=== PATIENT | female | born 1965 ===

== ENCOUNTER 2017-05-14 13:05 | Emergency (ER) | payer SELFPAY ==
[2017-05-14] MEDS ORDERED: Sodium Chloride 0.9% 1,000 ML IV ONE ×2 (13:53→14:58)
--- NOTE | 2017-05-14 13:53 | C.PDOC ---
History Of Present Illness 51-YEAR-OLD FEMALE, PRESENTS TO THE EMERGENCY DEPARTMENT WITH COMPLAINTS OF NVD , AND ABD PAIN EXAM MILD DIST B/L LQ TEND SOFT NO R/G Time Seen by Provider: 05/14/17 13:42 Chief Complaint (Nursing): Abdominal Pain History Per: Patient History/Exam Limitations: no limitations Past Medical History Reviewed: Historical Data, Nursing Documentation, Vital Signs Vital Signs: Last Vital Signs Temp 99.0 F 05/14/17 16:42 Pulse 91 H 05/14/17 16:42 Resp 16 05/14/17 16:42 BP 102/70 05/14/17 16:42 Pulse Ox 100 05/16/17 07:26 - Medical History PMH: Gastrointestinal Ulcer Family History: States: No Known Family Hx - Social History Hx Alcohol Use: No Hx Substance Use: No - Immunization History Hx Tetanus Toxoid Vaccination: No Hx Influenza Vaccination: No Hx Pneumococcal Vaccination: No Review Of Systems Except As Marked, All Systems Reviewed And Found Negative. Constitutional: Negative for: Fever Respiratory: Negative for: Shortness of Breath Gastrointestinal: Positive for: Nausea, Vomiting, Abdominal Pain, Diarrhea Physical Exam - Physical Exam Appears: Non-toxic, No Acute Distress Skin: Warm, Dry, No Rash Head: Atraumatic, Normacephalic Eye(s): bilateral: Normal Inspection Nose: Normal Oral Mucosa: Moist Lips: Normal Appearing Neck: Normal ROM Cardiovascular: Rhythm Regular Respiratory: Normal Breath Sounds, No Accessory Muscle Use Gastrointestinal/Abdominal: Soft, Tenderness (B/L LQ), No Guarding, No Rebound Back: Normal Inspection Extremity: Normal ROM ED Course And Treatment - Laboratory Results Result Diagrams: 05/14/17 14:06 05/14/17 14:06 O2 Sat by Pulse Oximetry: 100 Reevaluation Time: 17:41 Reassessment Condition: Improved Disposition Counseled Patient/Family Regarding: Studies Performed, Diagnosis, Need For Followup, Rx Given - Disposition Disposition: HOME/ ROUTINE Disposition Time: 17:38 Condition: IMPROVED Prescriptions: Loperamide HCl [Imodium A-D] 2 mg PO Q8 PRN #12 capsule PRN Reason: Diarrhea Ondansetron ODT [Zofran ODT] 4 mg PO TID PRN #12 odt PRN Reason: Nausea/Vomiting Instructions: Gastroenteritis (ED) Forms: [employer] (Taiwanese), Work Excuse Print Language: SERBIAN - Clinical Impression Clinical Impression: Nausea, Vomiting, Diarrhea - Scribe Statement The provider has reviewed the documentation as recorded by the Scribe (Cb Bowles) All medical record entries made by the Scribe were at my direction and personally dictated by me. I have reviewed the chart and agree that the record accurately reflects my personal performance of the history, physical exam, medical decision making, and the department course for this patient. I have also personally directed, reviewed, and agree with the discharge instructions and disposition. Decision To Admit - . Patient Diagnosis: Nausea, Diarrhea, Vomiting
[2017-05-14 14:13] LABS: BASO % 0.3 % (0.0-2.0); EOS % 0.2 % (0.0-4.0); LYMPH # 0.8 K/uL (1.0-4.3); LYMPH % 23.1 % (20.0-40.0); MEAN CELL VOLUME 85.8 fL (81.0-99.0); MEAN CORPUSCULAR HEMOGLOBIN 29.3 pg (27.0-31.0); MEAN CORPUSCULAR HGB CONC 34.1 g/dL (33.0-37.0); MEAN PLATELET VOLUME 8.4 fL (7.2-11.7); MONO # 0.4 K/uL (0.0-0.8); MONO % 10.3 % (0.0-10.0); RED CELL DISTRIBUTION WIDTH 13.8 % (11.5-14.5); WHITE BLOOD COUNT 3.6 K/uL (4.8-10.8)
[2017-05-14 14:19] LABS: RBC URINE 22 /hpf (0-3); URINE BACTERIA RARE (<OCC); URINE BILIRUBIN NEGATIVE (NEGATIVE); URINE BLOOD 1+ (NEGATIVE); URINE COLOR Amber (YELLOW); URINE GLUCOSE (UA) NORMAL (Normal); URINE KETONE TRACE mg/dL (NEGATIVE); URINE LEUKOCYTE ESTERASE NEG Leu/uL (Negative); URINE PROTEIN 2+ mg/dL (NEGATIVE); URINE UROBILINOGEN NORMAL mg/dL (0.2-1.0); WBC URINE 3 /hpf (0-5)
[2017-05-14] MEDS ORDERED: Sodium Chloride 0.9% 1,000 ML ONE (14:21)
[2017-05-14 14:26] LABS: CHLORIDE 99 mmol/L (98-107); POTASSIUM 3.7 mmol/L (3.6-5.2); SODIUM 136 mmol/L (132-148)
[2017-05-14 14:28] LABS: ALB/GLOB RATIO 1.3 (1.0-2.1); ALKALINE PHOSPHATASE 59 U/L (38-126); AST/SGOT 28 U/L (14-36); BILIRUBIN,TOTAL 0.9 mg/dL (0.2-1.3); CARBON DIOXIDE 23 mmol/L (22-30); GFR AFRICAN-AMERICAN > 60
[2017-05-14 14:29] LABS: ALT/SGPT 37 U/L (9-52); BLOOD UREA NITROGEN 13 mg/dL (7-17); CALCIUM 9.3 mg/dl (8.6-10.4); GLUCOSE,RANDOM 92 mg/dL (65-105)
[2017-05-14] MEDS ORDERED: Iodixanol 320 MG/ML 100 ML BOTTLE IV ONE (16:05)
[2017-05-14 16:46] VITALS: BP 102/70; PULSE 91; RESP 16; TEMP 99
[2017-05-14 16:55] VITALS: O2SAT 100
--- NOTE | 2017-05-14 17:01 | CT ---
PROCEDURE: CT Abdomen and Pelvis with contrast HISTORY: abd pain NVD COMPARISON: None. TECHNIQUE: Contrast dose: 100 mL Visipaque 320 Radiation dose: Total exam DLP = 463.46 mGy-cm. This CT exam was performed using one or more of the following dose reduction techniques: Automated exposure control, adjustment of the mA and/or kV according to patient size, and/or use of iterative reconstruction technique. FINDINGS: LOWER THORAX: Unremarkable. LIVER: Unremarkable. No gross lesion or ductal dilatation. GALLBLADDER AND BILE DUCTS: Unremarkable. PANCREAS: Unremarkable. No gross lesion or ductal dilatation. SPLEEN: Unremarkable. ADRENALS: Unremarkable. No mass. KIDNEYS AND URETERS: Pedunculated 2.2 cm left lower pole renal cortical cyst. No other renal mass. No renal calculus or hydronephrosis. VASCULATURE: Unremarkable. No aortic aneurysm. BOWEL: There is a probable duodenal diverticulum seen medial to the 2nd portion of the duodenum. Communication with bowel lumen is not demonstrated in the absence of oral contrast administration. There is particulate matter seen within this presumed diverticulum. There is mural thickening of a relatively short segment of was likely distal jejunum. This is best demonstrated on series 3, image 98 through 123, in the central abdomen. Consistent with nonspecific enteritis. No other abnormal bowel loops are identified. There is no bowel obstruction. APPENDIX: Normal appendix. PERITONEUM: Minimal free fluid in cul-de-sac. No generalized ascites. LYMPH NODES: Unremarkable. No enlarged lymph nodes. BLADDER: Unremarkable. REPRODUCTIVE: Normal uterus BONES: No acute fracture. OTHER FINDINGS: None. IMPRESSION: Nonspecific enteritis involving a relatively short segment of distal jejunum. Presumed diverticulum of the duodenum. Pedunculated left lower pole renal cortical cyst. No additional abnormality.
== END 2017-05-14 17:51 | disposition home or self-care (01) ==
LOC: C.ER 13:05
DX: R11.2 Nausea with vomiting, unspecified (principal); R19.7 Diarrhea, unspecified
CPT/HCPCS: 74177; 80053; 81001; 83690; 85025; 96361; 96374; 96375; 99285; J2270; J2405; J7040; Q9967